=== PATIENT | female | born 1975 | race Two or more races ===

== ENCOUNTER 2024-11-02 09:47 | Emergency (ER) | payer MEDICAID, OTHER ==
[~2024-11-02] VITALS: Ht 160 cm; Wt 134.9 kg
[2024-11-02 11:34] VITALS: BP 151/95; PULSE 82; RESP 18; TEMP 98.3; O2SAT 98
[2024-11-02] MEDS ORDERED: AZIT-43 PO (11:42)
[2024-11-02] MEDS ORDERED: IBUP-1454 PO (11:42)
[2024-11-02] MEDS ORDERED: BENZ100C97 PO (11:42)
--- NOTE | 2024-11-02 11:42 | ED.PDOC ---
Eye-HPI HPI Comments 49 year old female presents for URI symptoms 4 days. No medical hx. Taking no medication at this time. Denies fevers chills night sweats unintentional weight loss Denies persistent chest pain, shortness of breath, leg swelling Denies history of asthma nor any breathing conditions Denies history of pneumonia Denies recent international travel Chief Complaint: Sore Throat Time Seen by MD: 10:58 Primary Care Provider: KURT Reviewed Notes: Nurses Notes, Medications, Allergies Allergies: Coded Allergies: Penicillins (Verified Allergy, Unknown, 11/02/24) Home Meds Active Scripts Ibuprofen (Ibuprofen) 600 Mg Tab, 1 TAB PO TID for 10 Days, #30 TAB 0 Refills Prov:VALENTINO COLORADO FUNERAL SERVICE MANAGER 11/02/24 Benzonatate (Benzonatate) 100 Mg Cap, 1 CAP PO TID for 10 Days, #30 CAP 0 Refills Prov:VALENTINO COLORADO NP 11/02/24 Azithromycin (Azithromycin) 250 Mg Tab, 250 MG PO DAILY MDD 500 for 5 Days, #6 TAB 0 Refills 2 TABLETS ORALLY ON DAY ONE, THEN 1 TABLET ORALLY DAILY FOR 4 DAYS Prov:VALENTINO COLORADO [employer]ERAL SERVICE MANAGER 11/02/24 Information Source: Patient Mode of Arrival: Ambulatory All Other Systems: Reviewed and Negative (Per HPI) Physical Exam General Appearance: No Apparent Distress, Normal HEENT: Normal ENT Inspection, Pharynx Normal, TMs Normal Neck: Full Range of Motion, Non-Tender, Normal, Normal Inspection Respiratory: Chest Non-Tender, Lungs Clear, No Accessory Muscle Use, No Respiratory Distress, Normal Breath Sounds Cardiovascular: No Edema, No JVD, No Murmur, No Gallop, Regular Rate/Rhythm Breast Exam: Deferred Gastrointestinal: No Organomegaly, Non Tender, No Pulsatile Mass, Normal Bowel Sounds, Soft Genitalia: Deferred Pelvic: Deferred Rectal: Deferred Extremities: No calf tenderness, Normal capillary refill, Normal inspection, Normal range of motion, Non-tender, No pedal edema Musculoskeletal : Apperance: Normal Neurologic: Alert, truck dispatcher II-XII nml as Tested, No Motor Deficits, Normal Affect, Normal Mood, No Sensory Deficits Cerebellar Function: Normal Reflexes: Normal Skin: Dry, Normal Color, Warm Lymphatic: No Adenopathy Was a procedure done? Was a procedure done?: No EENT DIFF Eye: Other Sore Throat: Streptococcal, Viral Pharyngitis, URI X-Ray, Labs, Meds, VS Vital Signs Date Time Temp Pulse Resp B/P (MAP) Pulse Ox O2 Delivery O2 Flow Rate FiO2 11/02/24 11:34 98.3 82 18 151/95 (113) 98 98.3 11/02/24 11:34 82 18 98 Room Air 11/02/24 10:24 98.9 85 20 153/96 (115) 93 98.9 11/02/24 10:03 18 97 Room Air* 0 21 11/02/24 09:53 98.2 85 18 159/75 (103) 97 X-Ray, Labs, Meds, VS Comment On presentation, the patient is afebrile and has stable vital signs. The patient is overall well-appearing nontoxic on exam. On physical exam, respirations even and unlabored, clear to auscultation bilaterally. Oxygen stable on room air. Did not have any focal lung findings and therefore chest x-ray was not indicated during this exam Low suspicion of strep pharyngitis given physical exam findings and patient's presenting symptoms No signs of meningismus on exam Overall, the patient is well hydrated and nontoxic. Plan for Empiric Tx. The patient was able to tolerate p.o. intake in the ED. at this time, patient is safe for discharge home. The exam findings and plan discussed. We will discharge home with PCP follow up and strict return precautions. Discussed that cough can linger up to 6 weeks after viral URI Supportive care and return precautions discussed Counseled viral infection and explained that antibiotics would not be helpful in resolving the illness sooner. Recommended vitamin C, rest, handwashing, and symptomatic care. Expect 2-week course with possibly of cough lingering up to 6 weeks. Nonpharmacological remedies for fluids has been recommended as well Time of 1ST Reevaluation: 11:30 Reevaluation 1ST: Improved Patient Education/Counseling: Diagnosis, Treatment Family Education/Counseling: Diagnosis, Treatment Departure 1 Departure Time of Disposition: 11:41 Impression: Primary Impression: Pharyngitis Qualified Codes: J02.9 - Acute pharyngitis, unspecified Disposition: 01 HOME / SELF CARE / HOMELESS Condition: Stable e-Prescriptions Ibuprofen (Ibuprofen) 600 Mg Tab 1 TAB PO TID for 10 Days, #30 TAB 0 Refills Prov: VALENTINO COLORADO NP 11/02/24 Benzonatate (Benzonatate) 100 Mg Cap 1 CAP PO TID for 10 Days, #30 CAP 0 Refills Prov: VALENTINO COLORADO NP 11/02/24 Azithromycin (Azithromycin) 250 Mg Tab 250 MG PO DAILY MDD 500 for 5 Days, #6 TAB 0 Refills 2 TABLETS ORALLY ON DAY ONE, THEN 1 TABLET ORALLY DAILY FOR 4 DAYS Prov: VALENTINO COLORADO NP 11/02/24 Critical Care Note Critical Care Time?: No Stability Stability form required: No Heart Score Heart Score: Heart Score Response (Comments) Value History N/A 0 EKG N/A 0 Age N/A 0 Risk Factors N/A 0 Troponin N/A 0 Total 0 VALENTINO COLORADO NP Nov 02, 2024 11:42
== END 2024-11-02 12:01 | disposition home or self-care (01) ==
LOC: ER 09:47
DX: J02.9 Acute pharyngitis, unspecified (principal); Z88.0 Allergy status to penicillin; Z79.1 Long term (current) use of non-steroidal anti-inflammatories (NSAID)

== ENCOUNTER 2024-12-22 12:19 | Emergency (ER) | payer MEDICAID ==
[~2024-12-22] VITALS: Ht 160 cm; Wt 132.4 kg
[~2024-12-22 12:19] MED LIST: AZIT-43 PO; BENZ100C97 PO; IBUP-1454 PO
--- NOTE | 2024-12-22 12:46 | ED.PDOC ---
History of Present Illness HPI Comments 49 y/o morbidly obese F, with a history of COPD, DM, and HTN, presents with c/o frontal headache, nausea, and diarrhea, today. Patient endorses on having ongoing symptoms following initial onset. She reports no recent ailments or sick contact. Patient also reports on having 1x syncopal episode, while on the toilet, having a diarrhea episode 1x week ago in addition to being HTN being uncontrolled, currently. She denies any vision or speech changes, abdominal pain, vomiting, fever, chills, urinary symptoms, congestion, cough, or other associated symptoms or modifiers at this time. Chief Complaint: Headache Time Seen by MD: 12:30 Primary Care Provider: KURT Reviewed Notes: Nurses Notes, Medications, Allergies Allergies: Coded Allergies: Penicillins (Verified Allergy, Unknown, 11/02/24) Home Meds Active Scripts Ibuprofen (Ibuprofen) 600 Mg Tab, 1 TAB PO TID for 10 Days, #30 TAB 0 Refills Prov:VALENTINO COLORADO NP 11/02/24 Benzonatate (Benzonatate) 100 Mg Cap, 1 CAP PO TID for 10 Days, #30 CAP 0 Refills Prov:VALENTINO COLORADO NP 11/02/24 Azithromycin (Azithromycin) 250 Mg Tab, 250 MG PO DAILY MDD 500 for 5 Days, #6 TAB 0 Refills 2 TABLETS ORALLY ON DAY ONE, THEN 1 TABLET ORALLY DAILY FOR 4 DAYS Prov:VALENTINO COLORADO NP 11/02/24 Information Source: Patient Mode of Arrival: Ambulatory Severity: Moderate Timing: Weeks Duration: Since onset Prehospital treatment: None Past Medical History PAST MEDICAL HISTORY: COPD, DM, HTN Surgical History: Surgical History (Other): R-ankle surgery RESORT HOUSEKEEPER History: Denies all RESORT HOUSEKEEPER Hx Family History Family History: No family hx of Cancer, No family hx of Heart grady, No family hx ofKidney grady, No family hx of Liver grady, No family hx of Lung grady, No family hx of Stroke, Family hx of DM, Family hx of HTN Social History Smoker: Non-Smoker Alcohol: Denies ETOH Use Drugs: Denies Drug Use Lives In: Home Constitutional: denies: chills, diaphoresis, fatigue, fever, malaise, sweats, weakness, others EENTM: denies: blurred vision, double vision, ear bleeding, ear discharge, ear drainage, ear pain, ear ringing, eye pain, eye redness, hearing loss, mouth pain, mouth swelling, nasal discharge, nose bleeding, nose congestion, nose pain, photophobia, tearing, throat pain, throat swelling, voice changes, others Respiratory: denies: cough, hemoptysis, orthopnea, SOB at rest, shortness of breath, SOB with excertion, stridor, wheezing, others Cardiovascular: denies: chest pain, dizzy spells, diaphoresis, Dyspnea on exertion, edema, irregular heart beat, left arm pain, lightheadedness, palpitations, PND, syncope, others Gastrointestinal: reports: diarrhea, nausea; denies: abdomen distended, abdominal pain, blood streaked bowels, constipated, dysphagia, difficulty swallowing, hematemesis, melena, poor appetite, poor fluid intake, rectal bleeding, rectal pain, vomiting, others Genitourinary: denies: abnormal vagina bleeding, burning, dyspareunia, dysuria, flank pain, frequency, hematuria, incontinence, pain, , vagina discharge, urgency, others Neurological: reports: headache; denies: dizziness, fainting, left sided numbness, left sided weakness, numbness, paresthesia, pre-existing deficit, right sided numbness, right sided weakness, seizure, speech problems, tingling, tremors, weakness, others Musculoskeletal: denies: back pain, gout, joint pain, joint swelling, muscle pain, muscle stiffness, neck pain, others Integumetry: denies: bruises, change in color, change in hair/nails, dryness, laceration, lesions, lumps, rash, wounds, others Allergic/Immunocompromised: denies: Difficulty Healing, Frequent Infections, Hives, Itching, others Hematologic/Lymphatic: denies: anemia, blood clots, easy bleeding, easy bruising, swollen glands, others Endocrine: denies: excessive hunger, excessive sweating, excessive thirst, excessive urination, flushing, intolerance to cold, intolerance to heat, unexplained weight gain, unexplained weight loss, others Psychiatric: denies: anxiety, bipolar disorder, depression, hopeless, panic disorder, schizophrenia, sleepless, suicidal, others All Other Systems: Reviewed and Negative Physical Exam General Appearance: No Apparent Distress HEENT: Normal ENT Inspection, Pharynx Normal, TMs Normal Neck: Full Range of Motion, Non-Tender, Normal, Normal Inspection Respiratory: Chest Non-Tender, Lungs Clear, No Accessory Muscle Use, No Respiratory Distress, Normal Breath Sounds Cardiovascular: No Edema, No JVD, No Murmur, No Gallop, Normal Peripheral Pulses, Regular Rate/Rhythm Breast Exam: Deferred Gastrointestinal: No Organomegaly, Non Tender, No Pulsatile Mass, Normal Bowel Sounds, Soft Genitalia: Deferred Pelvic: Deferred Rectal: Deferred Extremities: No calf tenderness, Normal capillary refill, Normal inspection, Normal range of motion, Non-tender, No pedal edema Musculoskeletal : Apperance: Normal Neurologic: Alert, net front end developer II-XII nml as Tested, No Motor Deficits, Normal Affect, Normal Mood, No Sensory Deficits Cerebellar Function: Normal Reflexes: Normal Skin: Dry, Normal Color, Warm Lymphatic: No Adenopathy Was a procedure done? Was a procedure done?: No EKG EKG : Pulse Rate (adult): 73 [place]: Normal Cardiac Rhythm: NSR Block: None Hypertrophy: None ST: Normal Differential Dx Considerations may include: tension headache, migraines, viral syndrome, URI, PNA, gastritis, electrolyte imbalance, dehydration, medication noncompliance, among others X-Ray, Labs, Meds, VS Vital Signs Date Time Temp Pulse Resp B/P (MAP) Pulse Ox O2 Delivery O2 Flow Rate FiO2 12/22/24 13:50 156/76 12/22/24 12:46 73 12/22/24 12:38 73 12/22/24 12:30 98.2 80 18 163/104 (123) 95 98.2 Lab Test 12/22/24 12:51 12/22/24 12:46 Range/Units Urine Color Light-yellow Yellow Urine Clarity Clear Clear Urine pH 7.5 5.0-9.0 Urine Specific [place] 1.010 1.001-1.035 Urine Protein Negative Negative Urine Ketones Negative Negative Urine Blood Negative Negative /uL Urine Nitrite Negative Negative Urine Bilirubin Negative Negative Urine Urobilinogen Normal Negative mg/dL Urine Leukocyte Esterase Trace Negative /uL Urine RBC <1 0 - 4 /hpf Urine Microscopic WBC 4 0-5 /HPF Urine Squamous Epithelial Cells Few <5 /hpf Urine Bacteria Few H None Seen /hpf Urine Mucus Few None Seen Urine Glucose Normal Normal mg/dL White Blood Count 11.4 H 4.4-10.8 10^3/uL Red Blood Count 5.35 H 4.0-5.20 10^6/uL Hemoglobin 14.3 12.2-16.2 g/dL Hematocrit 42.9 36.0-46.0 % Mean Corpuscular Volume 80.3 80.0-100.0 fL Mean Corpuscular Hemoglobin 26.7 L 28.0-32.0 pg Mean Corpuscular Hemoglobin Concent 33.3 32.0-36.0 g/dL Red Cell Distribution Width 16.1 H 11.8-14.3 % Platelet Count 356 140-450 10^3/uL Mean Platelet Volume 9.1 6.9-10.8 fL Neutrophils (%) (Auto) 73.5 37.0-80.0 % Lymphocytes (%) (Auto) 18.5 10.0-50.0 % Monocytes (%) (Auto) 6.3 0.0-12.0 % Eosinophils (%) (Auto) 1.0 0.0-7.0 % Basophils (%) (Auto) 0.7 0.0-2.0 % Neutrophils # (Auto) 8.4 1.6-8.6 10 ^3/uL Lymphocytes # (Auto) 2.1 0.4-5.4 10 ^3/uL Monocytes # (Auto) 0.7 0-1.3 10 ^3/uL Eosinophils # (Auto) 0.1 0-0.8 10 ^3/uL Basophils # (Auto) 0.1 0-0.2 10 ^3/uL Nucleated Red Blood Cells 0.0 % Sodium Level 138 136-145 mmol/L Potassium Level 3.6 3.5-5.1 mmol/L Chloride Level 103 98-107 mmol/L Carbon Dioxide Level 26 20-31 mmol/L Anion Gap 9 5-15 Blood Urea Nitrogen 15 9-23 mg/dL Creatinine 1.03 H 0.550-1.02 mg/dL Glomerular Filtration Rate Calc 67 >90 mL/min BUN/Creatinine Ratio 14.6 10.0-20.0 Serum Glucose 109 H 74-106 mg/dL Calcium Level 10.2 8.7-10.4 mg/dL Current Medications Medications (Trade) Dose Ordered Sig/Hattie Route Start Time Stop Time Status Last Admin Clonidine HCl (Catap[place] Tablet) 0.2 mg ONCE ONCE PO 12/22/24 12:45 12/22/24 12:46 DC 12/22/24 13:50 CAT scan of the head shows: IMPRESSION: 1. Mild chronic ischemic changes without evidence of acute intracranial process. 2. Empty sella. 3. Mild left maxillary sinus disease. The patient was somewhat hypertensive so was given clonidine 0.2 mg by mouth The patient's CBC shows a slightly elevated white blood cell count of 11.4 The rest of the CBC and chemistry panel are within normal limits The urine test is negative The patient was diagnosis is hypertensive urgency She will follow up with the primary care doctor The patient will return to the emergency department's the condition worsens. Images Reviewed?: Images reviewed and evaluated by me Time of 1ST Reevaluation: 13:00 Reevaluation 1ST: Unchanged Time of 2ND Reevaluation: 13:51 Reevaluation 2ND: Improved Patient Education/Counseling: Diagnosis, Treatment, Prognosis, Need For Follow Up Family Education/Counseling: No Family Present Departure 1 Departure Time of Disposition: 13:50 Impression: Primary Impression: Hypertensive urgency Disposition: 01 HOME / SELF CARE / HOMELESS Condition: Fair Discharged With: Self Critical Care Note Critical Care Time?: No Stability Stability form required: No Heart Score Heart Score: Heart Score Response (Comments) Value History N/A 0 EKG N/A 0 Age N/A 0 Risk Factors N/A 0 Troponin N/A 0 Total 0 I personally scribed for BOOKER JJ MD ([email or web address]) on 12/22/24 at 12:46. Electronically submitted by Giovanny Nelson ([email or web address]). BOOKER JJ MD Dec 22, 2024 12:46
[2024-12-22 12:54] LABS: Basophils # (auto) 0.1 10 ^3/uL (0-0.2); Basophils % (auto) 0.7 % (0.0-2.0); Eosinophils # (auto) 0.1 10 ^3/uL (0-0.8); Hematocrit 42.9 % (36.0-46.0); Hemoglobin 14.3 g/dL (12.2-16.2); Lymphocytes # (auto) 2.1 10 ^3/uL (0.4-5.4); Lymphocytes % (auto) 18.5 % (10.0-50.0); Mean Corpuscular Hemoglobin 26.7 pg (28.0-32.0); Mean Corpuscular Hgb Conc. 33.3 g/dL (32.0-36.0); Mean Corpuscular Volume 80.3 fL (80.0-100.0); Monocytes # (auto) 0.7 10 ^3/uL (0-1.3); Monocytes % (auto) 6.3 % (0.0-12.0); Neutrophils # (auto) 8.4 10 ^3/uL (1.6-8.6); Neutrophils % (auto) 73.5 % (37.0-80.0); Platelet Count (auto) 356 10^3/uL (140-450); Red Blood Cells 5.35 10^6/uL (4.0-5.20); Red Cell Distribution Width 16.1 % (11.8-14.3); White Blood Cell 11.4 10^3/uL (4.4-10.8)
[2024-12-22 12:58] LABS: Urine Bacteria FEW /hpf (None Seen); Urine Blood Negative /uL (Negative); Urine Clarity Clear (Clear); Urine Color Light-Yellow (Yellow); Urine Mucus FEW (None Seen); Urine Protein, UAD Negative (Negative); Urine Squamous Epithelial Cell FEW /hpf (<5); Urine Urobilinogen Normal (Negative); Urine WBC 4 /HPF (0-5); Urine pH 7.5 (5.0-9.0)
[2024-12-22 13:02] LABS: Chloride 103 mmol/L (98-107); Potassium 3.6 mmol/L (3.5-5.1); Sodium 138 mmol/L (136-145)
[2024-12-22 13:03] LABS: Anion Gap 9 (5-15); Calcium 10.2 mg/dL (8.7-10.4); Carbon Dioxide 26 mmol/L (20-31)
[2024-12-22 13:08] LABS: BUN/Creatinine Ratio 14.6 (10.0-20.0); Blood Urea Nitrogen 15 mg/dL (9-23)
[2024-12-22 13:12] LABS: Glucose 109 mg/dL (74-106)
--- NOTE | 2024-12-22 13:16 | DVH ---
EXAM: CT HEAD WITHOUT CONTRAST HISTORY: syncope and [place] COMPARISON: None TECHNIQUE: Noncontrast axial CT images of the head were performed. Sagittal and coronal reformatted i mages were obtained. This CT exam was performed using 1 or more of the following dose reduction techn iques: Automated exposure control, adjustment of the mA and/or kv according to patient size, or the u se of iterative reconstruction techniques. Radiation Dose: CTDI volume is 52.15 mGy. Dose-length product is 836.04 mGy*cm FINDINGS: No intracranial hemorrhage, mass, midline shift, hydrocephalus, or evidence of acute large vessel inf arct. There are old lacunar infarcts versus prominent perivascular spaces along the caudal margins of the bilateral basal ganglia. There are small old lacunar infarcts of the bilateral external capsules . The sella is empty. There is a mucous retention cysts in the left maxillary sinus. There is a small right aleida bullosa. The bilateral mastoid air cells and middle ear spaces are clear. No cranial fr acture or scalp edema. IMPRESSION: 1. Mild chronic ischemic changes without evidence of acute intracranial process. 2. Empty sella. 3. Mild left maxillary sinus disease.
[2024-12-22] MEDS: cloNIDine HCL 0.1 MG TAB PO ONE (13:50)
[2024-12-22 15:38] VITALS: BP 143/59; PULSE 64; RESP 17; TEMP 98; O2SAT 98
--- NOTE | 2024-12-24 10:53 | ECG ---
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
== END 2024-12-22 15:40 | disposition home or self-care (01) ==
LOC: ER 12:25
DX: I16.0 Hypertensive urgency (principal); E11.9 Type 2 diabetes mellitus without complications; J44.9 Chronic obstructive pulmonary disease, unspecified; Z98.890 Other specified postprocedural states; Z88.0 Allergy status to penicillin; Z79.1 Long term (current) use of non-steroidal anti-inflammatories (NSAID); Z79.899 Other long term (current) drug therapy
CPT/HCPCS: 36415; 70450; 80048; 81001; 85025; 93005